=== PATIENT | male | born 1975 | race Two or more races ===

== ENCOUNTER 2017-08-13 20:32 | Inpatient (IN) | payer MEDICAID ==
[~2017-08-13] VITALS: Ht 185.4 cm; Wt 108.9 kg
[2017-08-13] MEDS ORDERED: ACETAMINOPHEN 160 MG/5 ML UDC PO ONE (21:30)
[2017-08-13] MEDS ORDERED: IV NORMAL SALINE 1000 ML BAG IV ONE ×2 (21:30→22:15)
[2017-08-13] MEDS ORDERED: ACETAMINOPHEN 650 MG/20.3 ML LIQUID UDC ONE (21:35)
[2017-08-13 21:46] LABS: BASOPHILS % (AUTO) 0.4 % (0.0-2.0); HEMATOCRIT 44.3 % (36.7-47.1); LYMPHOCYTES # (AUTO) 0.7 K/uL (20.0-40.0); LYMPHOCYTES % (AUTO) 8.1 % (20.5-51.5); MEAN CORPUSCULAR HEMOGLOBIN 29.8 uug (23.8-33.4); MEAN CORPUSCULAR HGB CONC 34 g/dL (32.5-36.3); MEAN CORPUSCULAR VOLUME 87.9 fL (73.0-96.2); MONOCYTES # (AUTO) 1.2 K/uL (2.0-10.0); MONOCYTES % (AUTO) 13.8 % (0.0-11.0); NEUTROPHILS # (AUTO) 6.5 K/uL (1.8-8.9); NEUTROPHILS % (AUTO) 77.7 % (38.5-71.5); PLATELET COUNT (AUTO) 195 K/uL (152-348); RED BLOOD CELL COUNT(AUTO) 5.05 MIL/uL (4.06-5.63); WHITE BLOOD COUNT (AUTO) 8.4 K/uL (3.6-10.2)
[2017-08-13 21:50] LABS: CREATININE 0.9 mg/dL (0.6-1.3)
[2017-08-13 21:58] LABS: BILIRUBIN,DIRECT 0.1 mg/dL (0.0-0.2); BILIRUBIN,TOTAL 0.5 mg/dL (0.2-1.0); TOTAL PROTEIN, SERUM 7.5 g/dL (6.4-8.2)
[2017-08-13] MEDS ORDERED: ASPIRIN 325 MG TABLET PO ONE (22:45)
[2017-08-13] MEDS ORDERED: ASPIRIN 325 MG TABLET ONE (22:48)
[2017-08-13] MEDS ORDERED: LEVOFLOXACIN 750MG/D5W 750 MG in PREMIXED 1 EACH IV SCH (23:15)
[2017-08-13] MEDS ORDERED: LEVOFLOXACIN 750MG/D5W 150 ML IV ONE (23:28)
[2017-08-13 23:50] LABS: *BILIRUBIN,URIN NEGATIVE (NEGATIVE); *BLOOD, URINE Trace-intact (NEGATIVE); *CLARITY,URINE CLEAR (CLEAR); *COLOR,URINE YELLOW (YELLOW); *KETONES,URINE TRACE (NEGATIVE); *PROTEIN,URINE 2+ (NEGATIVE); *UROBILINOGEN,URINE 0.2 E.U./dl (NORMAL); LEUKOCYTE ESTERASE ,URINE NEGATIVE (NEGATIVE); NITRITE, URINE NEGATIVE (NEGATIVE); PH,URINE 5.5 (5.0-8.0); UGLUCOSE NEGATIVE (NEGATIVE)
[2017-08-13 23:59] LABS: BACTERIA,URINE NONE SEEN /HPF (NONE SEEN); SQUAMOUS EPITHELIAL CELL,UR FEW /HPF (NONE SEEN)
[2017-08-14] LABS: MUCUS,URINE FEW /LPF (0-FEW)
--- NOTE | 2017-08-14 00:17 | NUR ---
Call placed to [facility]) speaking with [facility].
[2017-08-14] MEDS ORDERED: DEXTROSE 50% 50 ML DISP.SYRIN IV PRN (00:45)
[2017-08-14] MEDS ORDERED: NITROGLYCERIN 0.4 MG/TAB BOTTLE SL ONE (00:45)
[2017-08-14] MEDS ORDERED: MORPHINE SULFATE 2 MG/1 ML DISP.SYRIN IV PRN (00:45)
[2017-08-14] MEDS ORDERED: ACETAMINOPHEN 325 MG TABLET PO PRN (00:45)
[2017-08-14] MEDS ORDERED: INSULIN REGULAR, HUMAN 300 UNIT/3 ML VIAL SQ PRN (00:45)
[2017-08-14] MEDS ORDERED: MAGNESIUM HYDROXIDE 30 ML LIQUID UDC PO PRN (00:45)
[2017-08-14] MEDS ORDERED: ONDANSETRON 4 MG/2 ML VIAL IV PRN (00:45)
[2017-08-14] MEDS ORDERED: INSULIN REGULAR, HUMAN 300 UNITS/3 ML VIAL SQ PRN (00:45)
[2017-08-14] MEDS ORDERED: ZOLPIDEM 5 MG TABLET PO PRN (00:45)
[2017-08-14] MEDS ORDERED: HYDROCODONE/APAP 5-325MG TABLET PO PRN (00:45)
--- NOTE | 2017-08-14 01:10 | NUR ---
NEW ADMIT FROM ER ADMITTED FOR INCREASED TEMPERATURE OF UNKNOWN ORIGIN AND INCREASED TROPONIN. HE DENIES CHEST PAIN OR ANY DISTRESS. PATIENT ON TELE WITH SINUS RHYTHM. NO FEVER ON ASSESSMENT, V./S ARE STABLE. WILL CONTINUE TO MONITOR PATIENT
--- NOTE | 2017-08-14 01:13 | NUR ---
Pt. admitted to [facility], under care of Devan Albrecht. Belongs List completed
[2017-08-14 01:20] VITALS: BP 111/70
[2017-08-14 04:00] VITALS: BP 138/95
--- NOTE | 2017-08-14 06:35 | NUR ---
PATIENT SLEPT WELL THROUGH THE NIGHT, HE DENIED CHEST PAIN OR ANY DISTRESS ON THIS SHIFT. NO FEVER, V/S STABLE. NO FURTHER CHANGES IN STATUS. PATIENT IS ASLEEP WITH NO DISTRESS AT PRESENT
[2017-08-14 06:46] LABS: MAGNESIUM 1.7 mg/dL (1.8-2.4); PHOSPHOROUS 3.5 mg/dL (2.5-4.9)
[2017-08-14] MEDS ORDERED: BLOOD SUGAR DIAGNOSTIC 1 EACH STRIP VI SCH (07:30)
--- NOTE | 2017-08-14 07:30 | NUR ---
PATIENT STATE WANT TO GO HOME NOW AND ALREADY SIGNS AMA FORM ,EXPLAINED THE RISKS OF LEAVING THE HOSPITAL AT THIS TIME ,STATE UNDERSTAND BUT STILL WANT TO GO HOME HL AND TELE WAS DISCONTINUE PRIOR PATIENT GO HOME
--- NOTE | 2017-08-14 08:15 | NUR ---
PATIENT WALK OUT FROM THE FLOOR WITH HIS BELONGING CONDITION STABLE NO SOB OR PAIN
[2017-08-14] MEDS ORDERED: ASPIRIN 81 MG TAB.CHEW PO SCH (09:00)
[2017-08-16 14:06] LABS: *GC NAA Negative (Negative); *TRIC.VAG. NAA Positive (Negative)
== END 2017-08-14 08:15 | disposition left against medical advice (07) | DRG 113 ==
LOC: ER 20:34 → TELE 08-14 00:38
PROVIDERS: ADMIT Nurse Practitioner Acute Care; ATTEND Internal Medicine
DX: J02.8 Acute pharyngitis due to other specified organisms (principal); I11.9 Hypertensive heart disease without heart failure; R50.9 Fever, unspecified; B97.89 Other viral agents as the cause of diseases classified elsewhere; E11.9 Type 2 diabetes mellitus without complications; R74.8 Abnormal levels of other serum enzymes
CPT/HCPCS: 36415; 70030-TC; 71045; 83605; 83735; 84100; 85025; 86403; 87040; 87070; 87086; 87400; 87491; 93005; A4663; J1815; J1956; J7030

== ENCOUNTER 2017-12-21 21:52 | Emergency (ER) | payer MEDICAID ==
[~2017-12-21] VITALS: Ht 185.4 cm; Wt 104.3 kg
--- NOTE | 2017-12-21 22:10 | NUR ---
Dr. Quiñonez at bedside for MSE.
[2017-12-21] MEDS ORDERED: CLINDAMYCIN HCL 150 MG CAPSULE PO ONE (22:15)
[2017-12-21] MEDS ORDERED: CLINDAMYCIN HCL 300 MG CAPSULE ONE (22:24)
--- NOTE | 2017-12-21 22:25 | NUR ---
Patient discharged to home in stable conditon. Written and verbal after care instructions given. Patient verbalizes understanding of instructions. Pt ambulated out of ER with steady gait, no acute signs of distress, VSS, all belongings taken.
[2017-12-21 22:26] VITALS: BP 168/92
[2017-12-21] MEDS ORDERED: IBUPROFEN 600 MG TABLET ONE (22:26)
[2017-12-21] MEDS ORDERED: IBUPROFEN 600 MG TABLET PO ONE (22:30)
== END 2017-12-21 22:32 | disposition home or self-care (01) ==
LOC: ER 21:54
DX: N49.2 Inflammatory disorders of scrotum (principal); L73.9 Follicular disorder, unspecified; E11.9 Type 2 diabetes mellitus without complications; I10 Essential (primary) hypertension; Z88.0 Allergy status to penicillin
CPT/HCPCS: A4663

== ENCOUNTER 2020-07-07 02:58 | Emergency (ER) | payer OTHER ==
[~2020-07-07] VITALS: Ht 185.4 cm; Wt 95.3 kg
--- NOTE | 2020-07-07 03:10 | NUR ---
Patient walked into ER c/o penis pain that started 4 months ago. Patient states he is a non complaint DM who had "skin cuts on my foreskin". Came in for sympotoms not resolving. Dr Austin into eval patient.
--- NOTE | 2020-07-07 03:26 | NUR ---
After doing accu check on patient, he stated "I just want to leave to find the person I came in with." Patient came in with female acquaintance. Patient eloped ER before ERMD could re eval patient.
== END 2020-07-07 03:20 | disposition left against medical advice (07) ==
LOC: ER 03:08
DX: E11.65 Type 2 diabetes mellitus with hyperglycemia (principal); F17.200 Nicotine dependence, unspecified, uncomplicated; Z88.0 Allergy status to penicillin; I10 Essential (primary) hypertension
CPT/HCPCS: A4663

== ENCOUNTER 2020-09-11 12:40 | Emergency (ER) | payer OTHER ==
[~2020-09-11] VITALS: Ht 185.4 cm; Wt 104.3 kg
[2020-09-11] MEDS ORDERED: METF-495 PO (12:48)
[2020-09-11] MEDS ORDERED: GLYB2.5T4 PO ×2 (12:48→12:54)
[2020-09-11] MEDS ORDERED: METF-442 PO (12:54)
[2020-09-11] MEDS ORDERED: INSU100V28 SQ (12:54)
[2020-09-11 12:55] VITALS: BP 153/96
--- NOTE | 2020-09-11 12:56 | NUR ---
Patient discharged to home in stable condition. Written and verbal after care instructions given. Patient verbalizes understanding of instructions. Stressed follow up or return to ER for worsening s/s.
== END 2020-09-11 12:57 | disposition home or self-care (01) ==
LOC: ER 12:40
DX: E11.65 Type 2 diabetes mellitus with hyperglycemia (principal); Z76.0 Encounter for issue of repeat prescription; Z88.0 Allergy status to penicillin; I10 Essential (primary) hypertension; Z79.4 Long term (current) use of insulin
CPT/HCPCS: A4663